=== PATIENT | female | born 1970 | race Caucasian/White ===

== ENCOUNTER → 2025-02-07 | Outpatient (REF) | payer OTHER ==
[~2025-02-07] MED LIST: CLONIDINE HCL0.2 MG PO; CYMBALTA20 MG PO; FLECTOR1 EACH PO; JARDIANCE25 MG PO; LYRICA150 MG PO; OZEMPIC0.25 MG/02 SC; TIZANIDINE HCL4 MG PO; TRELEGY ELLIPT1 EAC1 INH; VENTOLIN HFA18 GM INH; VYVANSE50 MG PO
== END ==
LOC: RAD 10:41
PROVIDERS: ATTEND Orthopaedic Surgery Adult Reconstructive Orthopaedic Surgery
DX: R07.89 Other chest pain (principal)
CPT/HCPCS: 93306